=== PATIENT | female | born 1980 | race Caucasian/White ===

== ENCOUNTER 2019-12-31 15:27 | Emergency (ER) | payer SELFPAY ==
[~2019-12-31] VITALS: Ht 157.5 cm; Wt 82.0 kg
[2019-12-31 15:31] VITALS: BP 110/71
[2019-12-31] MEDS ORDERED: IBUPROFEN 600MG TABLET PO ONE (18:00)
[2019-12-31] MEDS ORDERED: ACETAMINOPHEN 500MG TABLET PO ONE (18:00)
[2019-12-31] MEDS ORDERED: CLINDAMYCIN HCL 150MG CAPSULE PO SCH (18:00)
== END 2019-12-31 18:15 | disposition home or self-care (01) ==
LOC: ER 15:27
DX: L03.113 Cellulitis of right upper limb (principal); Z98.890 Other specified postprocedural states; Z88.0 Allergy status to penicillin
CPT/HCPCS: 99284